=== PATIENT | male | born 1955 | race Caucasian/White ===

== ENCOUNTER 2018-12-16 10:37 | Outpatient (CLI) | payer MEDICARE ==
--- NOTE | 2018-12-16 14:46 | CT ---
CT ABDOMEN WITH AND WITHOUT CONTRAST: Axial tomograms were obtained without IV enhancement. This was followed by tomograms following an ao rtogram protocol with multiplanar reconstruction and 3D postprocessing. INDICATION: Abdominal aortic aneurysm. COMPARISON: There are no comparison studies available. FINDINGS: There is a sacular abdominal aortic aneurysm involving the distal abdominal aorta. This aneurysm beg ins just below the renal arteries. Aortic diameter at the renal arteries measured at approximately 2 .1 cm. This sacular aneurysm exhibits significant peripheral thrombus. This is somewhat bilobed. The super ior portion of this aneurysm has a diameter of approximately 4.0 cm. The more inferior portion has a diameter of 3.2 cm. The lumen in the mid portion of this aneurysm measures approximately 2.5 cm. The aneurysm does extend to the bifurcation but does not involve the common iliac arteries. There is no significant stenosis at the origin of the celiac artery. There is mild soft plaque produ cing mild to moderate stenosis in the proximal superior mesenteric artery just beyond its origin best appreciated on sagittal imaging. The main superior mesenteric artery trunk is patent without stenos is. Both renal arteries are patent with mild atherosclerotic changes. No evidence of renal artery stenos is. Both common iliacs are patent with mild atherosclerotic change. Lung bases clear. The liver, spleen, and pancreas are unremarkable. There are 2 adjacent cystic les ions arising from the anterior left renal cortex. There are other tiny subcentimeter cystic lesions i n both kidneys which are not well characterized. The kidneys are otherwise unremarkable. The visual ized bowel loops are unremarkable. IMPRESSION: There is a sacular abdominal aortic aneurysm as noted above. This has a bilobed appearance on sagitt al imaging with AP dimensions given above. The craniocaudal dimension in the sagittal plane is measu red at 7.7 cm. POS: [facility]
[2018-12-16] MEDS ORDERED: ISOVUE-370 76%-LOCM 1 ML ONE (15:48)
== END 2018-12-16 10:38 | disposition home or self-care (01) ==
LOC: BICCT 10:37
PROVIDERS: ATTEND Internal Medicine Cardiovascular Disease
DX: I71.4 Abdominal aortic aneurysm, without rupture (principal)
CPT/HCPCS: 74175

== ENCOUNTER 2021-02-14 10:49 | Outpatient (CLI) | payer MEDICARE ==
[2021-02-14] MEDS ORDERED: Iopamidol-370 76% 500 ML 1 ML ONE (12:02)
== END 2021-02-14 10:50 | disposition home or self-care (01) ==
LOC: BICCT 10:49
PROVIDERS: ATTEND Internal Medicine Cardiovascular Disease
DX: I71.4 Abdominal aortic aneurysm, without rupture (principal); I25.10 Atherosclerotic heart disease of native coronary artery without angina pectoris; J98.4 Other disorders of lung; J98.11 Atelectasis; E27.8 Other specified disorders of adrenal gland; N28.1 Cyst of kidney, acquired; K57.30 Diverticulosis of large intestine without perforation or abscess without bleeding; M47.819 Spondylosis without myelopathy or radiculopathy, site unspecified; K55.069 Acute infarction of intestine, part and extent unspecified; K55.059 Acute (reversible) ischemia of intestine, part and extent unspecified
CPT/HCPCS: 74175; 82565; Q9967

== ENCOUNTER 2023-02-17 13:33 | Outpatient (CLI) | payer MEDICARE ==
[~2023-02-17 13:33] MED LIST: Iopamidol 370 76% 100 ML VIAL ONE
== END 2023-02-17 13:34 | disposition home or self-care (01) ==
LOC: BICCT 13:33
PROVIDERS: ATTEND Internal Medicine Cardiovascular Disease
DX: I25.10 Atherosclerotic heart disease of native coronary artery without angina pectoris (principal); I71.40 Abdominal aortic aneurysm, without rupture, unspecified
CPT/HCPCS: 74175; 82565

== ENCOUNTER 2023-03-09 08:43 | Outpatient (CLI) | payer MEDICARE | END 2023-03-09 08:44 | disposition home or self-care (01) | LOC: BICCT 08:43 | PROVIDERS: ATTEND Thoracic Surgery (Cardiothoracic Vascular Surgery) | DX: I71.40 Abdominal aortic aneurysm, without rupture, unspecified (principal); K57.30 Diverticulosis of large intestine without perforation or abscess without bleeding; N28.1 Cyst of kidney, acquired | CPT/HCPCS: 74174 ==

== ENCOUNTER 2023-04-09 08:59 | Outpatient (CLI) | payer MEDICARE | END 2023-04-09 09:00 | disposition home or self-care (01) | LOC: LAB 08:59 | PROVIDERS: ATTEND Thoracic Surgery (Cardiothoracic Vascular Surgery) | DX: Z01.818 Encounter for other preprocedural examination (principal); I71.40 Abdominal aortic aneurysm, without rupture, unspecified | CPT/HCPCS: 93005; 93010 ==

== ENCOUNTER 2023-04-09 09:00 | Inpatient (IN) | payer MEDICARE ==
[2023-04-09 13:13] LABS: Hematocrit 46.5 % (42.0-52.0); Hemoglobin 17.1 g/dL (14.0-18.0); Mean Corpuscular HGB CONC 36.8 g/dL (32.0-36.0); Mean Corpuscular Hemoglobin 33.4 pg (27.0-31.0); Mean Corpuscular Volume 90.8 fl (78.0-98.0); Mean Platelet Volume 10.6 fL (7.4-10.4); Platelet Count 210 10x3/uL (130-400); Red Blood Cell (RBC) Count 5.12 mill/uL (4.70-6.10); White Blood Cell (WBC) Count 12.7 10x3/uL (4.8-10.8)
[2023-04-09 17:52] LABS: Anion Gap 17 mmol/L (10-20); BUN (Urea Nitrogen) 17 mg/dL (8.4-25.7); Calc. Creatinine Clearance 80 mL/min (70-130); Calcium 9.9 mg/dL (7.8-10.44); Carbon Dioxide 23 mmol/L (23-31); Chloride 98 mmol/L (98-107); Estimated GFR 78; Glucose 129 mg/dL (80-115); Sodium 133 mmol/L (136-145)
[2023-04-12] MEDS ORDERED: Lidocaine 1% MPF 2 ML VIAL ONE (06:51)
[2023-04-12] MEDS ORDERED: Heparin 10,000 UNITS/ 10 ML VIAL ONE ×3 (07:00→08:42)
[2023-04-12] MEDS ORDERED: EPINEPHrine 1 MG/ML VIAL ONE (07:00)
[2023-04-12] MEDS ORDERED: Bupivacaine PF 0.5% 30 ML VIAL ONE (07:01)
[2023-04-12] MEDS ORDERED: Midazolam HCl 2 mg/2 ml Vial ONE (07:29)
[2023-04-12] MEDS ORDERED: Fentanyl 250 MCG/5 ML VIAL ONE (07:34)
[2023-04-12] MEDS ORDERED: PROPOFOL 20 ML ONE (07:37)
[2023-04-12] MEDS ORDERED: ePHEDrine Sulfate 50 MG/10 ML VIAL ONE ×2 (07:38→07:51)
[2023-04-12] MEDS ORDERED: Sodium Chloride 0.9% 100 ML ONE ×2 (07:38→16:17)
[2023-04-12] MEDS ORDERED: CEFAZOLIN 2 GM VIAL ONE ×2 (07:38→16:17)
[2023-04-12] MEDS ORDERED: Rocuronium Bromide 10 MG/ML (10ML VIAL) ONE ×2 (07:42→07:51)
[2023-04-12] MEDS ORDERED: Lidocaine 1% PF 5 ML VIAL ONE ×2 (07:42→07:51)
[2023-04-12] MEDS ORDERED: PHENYLEPHRINE-NS 100 MCG/ML 10 ML SYRINGE ONE ×2 (07:42→07:51)
[2023-04-12] MEDS ORDERED: Ondansetron PF 4 MG/2 ML Vial ONE ×2 (07:42→07:51)
[2023-04-12] MEDS ORDERED: NEOSTIGMINE 3 MG/3 ML SYR 3 MG/3 ML SYRINGE ONE (07:51)
[2023-04-12] MEDS ORDERED: PROPOFOL 200 MG/20 ML VIAL ONE (07:51)
[2023-04-12] MEDS ORDERED: Glycopyrrolate 0.2 MG/ML 5 ML SYRINGE ONE (07:51)
[2023-04-12] MEDS ORDERED: Protamine Sulfate 50 MG/5 ML VIAL ONE ×2 (09:15)
[2023-04-12] MEDS ORDERED: niCARdipine 25 MG in Sodium Chloride 0.9% 250 ML 250 ML IVPB PRN (09:44)
[2023-04-12] MEDS ORDERED: fentaNYL 50 mcg/mL 1 mL Vial SLOW IVP PRN ×2 (09:44)
[2023-04-12] MEDS ORDERED: Acetaminophen 325 MG TAB PO PRN (09:44)
[2023-04-12] MEDS ORDERED: Promethazine HCl 25 MG/ML VIAL IM PRN (09:44)
[2023-04-12] MEDS ORDERED: Ondansetron PF 4 MG/2 ML Vial IVP PRN (09:44)
[2023-04-12] MEDS ORDERED: Phenylephrine 40 MG in Sodium Chloride 0.9% 250 ML 250 ML IVPB PRN (09:44)
[2023-04-12] MEDS ORDERED: Sodium Chloride 0.9% 1,000 ML IV SCH (09:45)
[2023-04-12] MEDS ORDERED: fentaNYL PF 100 MCG/2 ML SYRINGE ONE ×2 (09:53→15:08)
[2023-04-12] MEDS ORDERED: fentaNYL 50 mcg/mL 1 mL Vial ONE (17:14)
[2023-04-12] MEDS: CEFAZOLIN 2 GM in Sodium Chloride 0.9% 100 ML IVPB SCH ×2 (18:42→22:10)
[2023-04-12 18:47] VITALS: BMI 31.6
[2023-04-12] MEDS: traMADol HCl 50 MG TAB PO PRN (20:30)
[2023-04-12] MEDS: Carvedilol 6.25 MG TAB PO SCH (20:33)
[2023-04-12] MEDS ORDERED: Rosuvastatin 20 MG TAB PO SCH (21:00)
[2023-04-12] MEDS ORDERED: Non-Formulary Item 1 EACH (Carvedilol [Carvedilol] 12.5 MG Tablet) PO SCH (21:00)
[2023-04-13 03:40] LABS: #Eosinphils 0.1 thou/uL (0.0-0.7); #Monocytes 2.1 thou/uL (0.11-0.59); %Basophils 0.3 % (0.0-1.0); %Eosinophils 0.6 % (0.0-10.0); %Monocytes 15.7 % (0.0-10.0); %Neutrophils 68.1 % (42.0-75.0); Hematocrit 43.8 % (42.0-52.0); Hemoglobin 14.5 g/dL (14.0-18.0); Mean Corpuscular HGB CONC 33.1 g/dL (32.0-36.0); Mean Corpuscular Volume 90.5 fl (78.0-98.0); Mean Platelet Volume 10.2 fL (7.4-10.4); Platelet Count 149 10x3/uL (130-400); Red Blood Cell (RBC) Count 4.84 mill/uL (4.70-6.10); White Blood Cell (WBC) Count 13.2 10x3/uL (4.8-10.8)
[2023-04-13 04:11] LABS: Anion Gap 12 mmol/L (10-20); BUN (Urea Nitrogen) 9 mg/dL (8.4-25.7); Calc. Creatinine Clearance 87 mL/min (70-130); Calcium 8.6 mg/dL (7.8-10.44); Carbon Dioxide 25 mmol/L (23-31); Chloride 100 mmol/L (98-107); Estimated GFR 87; Glucose 127 mg/dL (80-115); Potassium 3.8 mmol/L (3.5-5.1); Sodium 133 mmol/L (136-145)
[2023-04-13] MEDS: CEFAZOLIN 2 GM in Sodium Chloride 0.9% 100 ML IVPB SCH (05:54)
[2023-04-13] MEDS: traMADol HCl 50 MG TAB PO PRN (06:37)
[2023-04-13] MEDS ORDERED: Non-Formulary Item 1 EACH (Lisinopril/Hydrochlorothiazide [Lisinopril-Hctz 10-12.5 Mg Tab PO SCH (09:00)
[2023-04-13] MEDS ORDERED: Hydrochlorothiazide 25 MG TAB PO SCH (09:00)
[2023-04-13] MEDS ORDERED: Lisinopril 10 MG TAB PO SCH (09:00)
[2023-04-13] MEDS ORDERED: FLU VACC QS2023(65UP)/MF59C/PF 60 MCG/0.5 ML SYRINGE IM ONE (09:00)
[2023-04-13] MEDS ORDERED: Amlodipine 10 MG TAB PO SCH (09:00)
[2023-04-13] MEDS ORDERED: Non-Formulary Item 1 EACH (Rosuvastatin Calcium [Rosuvastatin Calcium] 40 MG Tablet) PO SCH (09:00)
[2023-04-13] MEDS ORDERED: Aspirin Chewable 81 MG TAB PO SCH (09:00)
[2023-04-13] MEDS: Carvedilol 6.25 MG TAB PO SCH (09:01)
[2023-04-13 09:02] VITALS: BP 118/83
[2023-04-13 12:38] VITALS: TEMP 98.5
== END 2023-04-13 12:40 | disposition home or self-care (01) | DRG 269 ==
LOC: SURG A 04-12 05:31 → CCU 04-12 17:52
PROVIDERS: ADMIT Thoracic Surgery (Cardiothoracic Vascular Surgery); ATTEND Thoracic Surgery (Cardiothoracic Vascular Surgery)
PROC: 04V03DZ Restriction of Abdominal Aorta with Intraluminal Device, Percutaneous Approach (ICD-10-PCS; principal; 2023-04-12)
PROC: 3E033XZ Introduction of Vasopressor into Peripheral Vein, Percutaneous Approach (ICD-10-PCS; 2023-04-12)
DX: I71.40 Abdominal aortic aneurysm, without rupture, unspecified (principal); Z79.899 Other long term (current) drug therapy
CPT/HCPCS: 36415; 80048; 85025; 85027; 86850; 86900; 86901; A4314; C1769; C1889; J0171; J1642; J1644; J2250; J2405; J2704; J2720; J3010; J3490; S0020

== ENCOUNTER 2023-07-16 10:05 | Outpatient (CLI) | payer OTHER ==
[2023-07-16] MEDS ORDERED: Iopamidol 370 76% 100 ML VIAL ONE (13:04)
== END 2023-07-16 10:06 | disposition home or self-care (01) ==
LOC: BICCT 10:05
PROVIDERS: ATTEND Thoracic Surgery (Cardiothoracic Vascular Surgery)
DX: I71.40 Abdominal aortic aneurysm, without rupture, unspecified (principal); K63.89 Other specified diseases of intestine; Z98.890 Other specified postprocedural states
CPT/HCPCS: 72191; 82565; Q9967